=== PATIENT | male | born 1960 | race Two or more races ===

== ENCOUNTER → 2018-07-17 | Day surgery (SDC) | payer OTHER ==
[~2018-07-17] VITALS: Ht 175.3 cm; Wt 88.5 kg
[2018-07-17] VITALS (9 sets, daily range): BP systolic 126–136; BP diastolic 85–92
[~2018-07-17] MED LIST: Atropine Inj 1mg/10ml Syr IV PRN; DiphenhydrAMINE 50mg/ml Inj IVP PRN; LR 1000ml 1,000 ML IVLG SCH; LR 1000ml ONE; Lidocaine 1% MPF 10mg/ml 5ml ONE; Midazolam 2mg/2ml Inj IVP PRN; Propofol 200mg/20ml IV ONE; fentaNYL 100 mcg/2 mL IV PRN
--- NOTE | 2018-07-17 07:11 | Anethesia Preoperative Eval ---
Anesthesia Pre-op PMH/ROS General Date of Evaluation: Jul 17, 2018 Time of Evaluation: 07:10 Anesthesiologist: ramirez ASA Score: ASA 3 Mallampati Score Class I : Soft palate, uvula, fauces, pillars visible Class II: Soft palate, uvula, fauces visible Class III: Soft palate, base of uvula visible Class IV: Only hard plate visible Mallampati Classification: Class II Surgeon: shar Diagnosis: gerd Surgical Procedure: egd Anesthesia History: none Family History: no anesthesia problems Allergies: Coded Allergies: No Known Allergies (Unverified , 07/17/18) Medications: see eMAR Patient NPO?: Yes Past Medical History Gastrointestinal/Genitourinary: Reports: GERD, other - abdominal pain PSxH Narrative: cervical spine surgery Anesthesia Pre-op Phys. Exam Physician Exam Constitutional: NAD Neurologic: CN 2-12 intact Cardiovascular: RRR Respiratory: CTA Gastrointestinal: S/NT/ND Airway Exam Mallampati Score: Class II MO: limited Neck: stiff TMD: 2fb ROM: limited Anesthesia Pre-op A/P Risk Assessment & Plan Assessment: asa3 Plan: mac Status Change Before Surgery: No Pre-Antibiotics Drug: Lynnette Castro MD Jul 17, 2018 07:11
--- NOTE | 2018-07-17 07:41 | Short Stay Surgery H&P ---
History of Present Illness History of Present Illness Chief Complaint Abdominal pains and GERD symptoms HPI Michele Barraza is a 57 year old male who was admitted on for GERD/abdominal pains Patient History Past Surgeries: (1) H/O cervical spine surgery Review of Systems Cardiovascular: Reports: no symptoms Respiratory: Reports: no symptoms Skeletal: Reports: trauma Gastrointestinal: Reports: gastro esophageal reflux disease Genitourinary: Reports: no symptoms Neurologic: Reports: no symptoms Endocrine: Reports: no symptoms Hematologic: Reports: no symptoms Physical Exam Skin: normal HENT: normal Heart: normal Lungs: normal Abdomen: abnormal Extremities: normal Genitourinary: normal Plan Plan of Care Uppr GI. endoscopy and biopsy. Preop Interventions None. Summary of Findings See the reports Attestation Are the patient's medical conditions optimized for surgery? Attestation Response: yes Carlos Gibson MD Jul 17, 2018 07:41
--- NOTE | 2018-07-17 07:42 | Pre-Procedure Note/Attestation ---
Pre-Procedure Note/Attestation Complete Prior to Procedure Planned Procedure: left Procedure Narrative: Examination of the upper GI. tract via endoscopy Indications for Procedure Pre-Operative Diagnosis: R/O Gastritis/Peptic ulcer/esophagitis Attestation I attest that I discussed the nature of the procedure; its benefits; risks and complications; and alternatives (and the risks and benefits of such alternatives ), prior to the procedure, with the patient (or the patient's legal access services representative). I attest that, if there was a reasonable possibility of needing a blood transfusion, the patient (or the patient's legal access services representative) was given the [place] [employer] standardized written summary, pursuant to the Selvin Hannah Blood Safety Act ([place] Health and Safety Code # 1645, as amended). I attest that I re-evaluated the patient just prior to the surgery and that there has been no change in the patient's H&P, except as documented below: Carlos Gibson MD Jul 17, 2018 07:42
--- NOTE | 2018-07-17 08:30 | Endoscopy Procedure Note ---
Endoscopy Procedure Note General Indication for Procedure: Dysphagia, GERDs abdominal pains Procedures Performed: EGD - Hiatal Hernia. Moderate gastritis of the antrum consistent with antritis. Biopsy obtained from antral area. Specimen: yes Pt Tolerated Procedure Well: Yes Estimated Blood Loss: none Anesthesia Anesthesiologist: Dr. John Anesthesia: moderate sedation Medications Medication Given: see anesthesia record Inserted Devices Implant(s) used?: No Quality Quality of Bowel Preparation: Excellent Was there any complications?: No GI Core Measures 50 yrs or older w/o bx or poly: Not Applicable 10yrs. F/U not recommended: Not Applicable If not recommended, why?: Med reason:<3 yrs.: System Reason:<3 yrs.: Carlos Gibson MD Jul 17, 2018 08:30
--- NOTE | 2018-07-17 08:32 | Discharge Instructions ---
Discharge Instructions Discharge Instructions Follow up with: Visit the docotor in the office after 2 weeks. Call first. For Congestive Heart Failure Reminder Report to your physician any weight gain of 5 pounds or more in one week. Carlos Gibson MD Jul 17, 2018 08:32
--- NOTE | 2018-07-17 09:24 | Immediate Post-Op Evaluation ---
Immediate Post-Op Evalulation Immediate Post-Op Evalulation Procedure: egd/bx Date of Evaluation: Jul 17, 2018 Time of Evaluation: 08:49 IV Fluids: 175ml lr Blood Products: none Estimated Blood Loss: negligible Blood Pressure Systolic: 127 Blood Pressure Diastolic: 86 Pulse Rate: 75 Respiratory Rate: 18 O2 Sat by Pulse Oximetry: 98 Temperature (Fahrenheit): 97.1 Pain Score (1-10): 0 Nausea: No Vomiting: No Complications none Patient Status: awake, reacts, patent Hydration Status: adequate Drug: Lynnette Castro MD Jul 17, 2018 09:24
--- NOTE | 2018-07-17 09:25 | 48 Hour Post Anesthesia Eval ---
Post Anesthesia Evaluation Procedure: egd/bx Date of Evaluation: Jul 17, 2018 Time of Evaluation: 08:51 Blood Pressure Systolic: 126 0: 87 Pulse Rate: 73 Respiratory Rate: 18 Temperature (Fahrenheit): 97.1 O2 Sat by Pulse Oximetry: 99 Airway: patent Nausea: No Vomiting: No Pain Intensity: 0 Hydration Status: adequate Cardiopulmonary Status: stable Mental Status/LOC: patient returned to baseline Post-Anesthesia Complications: none Follow-up care needed: N/A Lynnette Potts MD Jul 17, 2018 09:25
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
--- NOTE | 2018-07-17 15:45 | Operative Note - Dictated ---
DATE OF PROCEDURE: 07/17/2018 PROCEDURE: Esophagogastroduodenoscopy with biopsy. PREOPERATIVE DIAGNOSES: Abdominal pain, dysphagia, heartburn, rule out peptic ulcer disease, esophagitis. POSTOPERATIVE DIAGNOSES: 1. Hiatal hernia. 2. Moderate inflammatory process in the antrum consistent with antritis. Biopsy was taken from the antrum. MEDICATION USED: Per Dr. John, anesthesiologist. INSTRUMENT: GIF Olympus upper GI video endoscope. DESCRIPTION OF PROCEDURE: The patient after arriving in the endoscopy unit, was told about risks and benefits of the procedure, which he accepted and signed informed consent. He was then put on the left lateral decubitus position. After adequate IV sedation, the scope was gently passed through the cricopharyngeal area, was lodged into the upper esophagus. This area did not reveal any abnormality. As the scope was gradually advanced towards gastroesophageal junction, the entire length of the esophagus also looked completely normal. Finally, the scope was passed through the GE junction introduced into the stomach. It revealed that there was evidence of hiatal hernia, but no Avalos's. Scope was gradually advanced into the mid and lower part of the stomach, which revealed evidence of moderate inflammatory process consistent with erythema of the prepyloric area and mid antral area consistent with antritis, but there were no ulcers, tumors, or bleeding site, etc. No polyps noted. No tumors noted. One biopsy from the antral area was obtained. Subsequently, the scope was retroflexed and the area of the gastroesophageal junction was examined in a closer fashion, which revealed normal findings. At this point, the scope was passed through the pylorus. First and second portions of duodenum were also found to be completely normal. Finally, the scope was pulled out and the procedure was terminated. The patient tolerated the procedure well and left the endoscopy room in a good condition. Said Obinna Gbison DR: DESTINY JOB#: [id number] CC:
== END | disposition home or self-care (01) ==
LOC: GAS 07:22
DX: R10.9 Unspecified abdominal pain (principal); R12 Heartburn; R13.10 Dysphagia, unspecified; K44.9 Diaphragmatic hernia without obstruction or gangrene; Z98.1 Arthrodesis status; K21.9 Gastro-esophageal reflux disease without esophagitis
CPT/HCPCS: 43239; J2704; 94003; 94150